=== PATIENT | female | born 1975 | race Caucasian/White ===

== ENCOUNTER → 2020-12-31 | Outpatient (CLI) | payer MEDICARE, MEDICAID ==
[~2020-12-31] MED LIST: ACHD5005 PO; ATOR20TA66; CETI10TA17; CHOLESTEROL PILL PO; CLON2TAB3 PO; CYCL10TA9 PO; DOXY100C2 PO; DULO60CA6 PO; FLT11013; LAMO25TA8; MIRA50TA; MORP15TA69 PO; NAPR-243 PO; NAPR550T PO; NF-ESOM40C; NORG1TAB19; PALI6TAB2 PO; RT-ALBUINH
--- NOTE | 2020-12-31 15:37 | Diagnostic Imaging Report ---
Clinical Indications: Patient is having cervical spine and lumbar spine pain from carrying a heavy load. Exam: MRI of the cervical spine performed without IV contrast. Sequences include sagittal T1, sagittal T2, sagittal stir, and axial T2. Comparison: None. Findings: There is no acute cervical spine fracture. There is no significant Modic signal changes. Limited visualization of the posterior fossa is unremarkable. There is slight deformity of the cord seen at the C5-C6 level due to disk herniation. There is no definite cord signal abnormality. There is partial consolidation of the sphenoid sinus. There are cervical spine vertebral body spurs. There is facet arthropathy/hypertrophy seen at the left side more than the right. C1-C2: There is no significant central canal narrowing. C2-C3: There is no significant central spinal canal or neural foramen narrowing. C3-C4: There is a small posterior disk bulge and small bilateral uncinate spurs. There is mild to moderate right facet arthropathy and moderate left facet arthropathy/hypertrophy. There is moderate to severe left neural foramen narrowing and at least moderate right neural foramen narrowing. There is mild central canal stenosis. C4-C5: There is a small broad posterior disk bulge with bilateral uncinate spurs. There is severe left facet arthropathy/hypertrophy and mild right facet arthropathy. There is moderate to severe left neural foramen narrowing and severe right neural foramen narrowing. There is moderate to severe central canal stenosis. C5-C6: There is roughly 1 to 2 mm of grade 1 retrolisthesis of C5 on C6. There is no pars defect seen. There is a diffuse disk bulge with superimposed small broad posterior disk herniation. There is ligamentum flavum buckling and mild bilateral facet arthropathy. There is severe bilateral neural foramen narrowing and severe central canal stenosis. C6-C7: There is a small posterior disk bulge and ligamentum flavum buckling. There is moderate central canal stenosis. There is mild left neural foramen narrowing and no significant right neural foramen narrowing. C7-T1: Unremarkable. IMPRESSION: 1: There is multilevel cervical spine degenerative disk disease which is worse in the mid to lower cervical spine regions. 2: There is grade 1 retrolisthesis of C5 on C6 with diffuse disk bulge and posterior disk herniation. There is severe bilateral neural foramen narrowing and severe central canal stenosis. 3: There is a C4-C5 posterior disk bulge and uncinate spurs. There is moderate to severe central canal stenosis, moderate to severe left neural foramen narrowing is severe right neural foramen narrowing. Dictated by: Dictated on workstation # [id number]
--- NOTE | 2020-12-31 16:21 | Diagnostic Imaging Report ---
Clinical Indication: Patient states she has cervical spine and lumbar spine pain from carrying a heavy load. Exam: MRI of the lumbar spine performed without IV contrast. Sagittal T2, sagittal T1, sagittal T2 fat-sat, and axial T2. Comparison: MRI of the lumbar spine without contrast dated 12/29/2015. Findings: Stable 9 mm x 19 mm perineural cyst in the left T11-T12 neural foramen region. There is no acute lumbar spine fracture. There is Modic type I degenerative signal changes involving the L4-L5 and L5-S1 levels. The visualized portions of the distal thoracic spinal cord, conus medullaris, and cauda equina nerve roots are unremarkable. The conus medullaris tip is seen at the L1-L2 intervertebral level. There is no significant paraspinal soft tissue abnormality. There are degenerative spurs involving the lumbar spine and lower lumbar spine facet arthropathy. T12-L1: Unremarkable. L1-L2: Unremarkable. L2-L3: Unremarkable. L3-L4: There is a mild diffuse disk bulge with slight increased size of the posterior disk herniation component. There is a focal annular tear seen posteriorly. There is mild central canal narrowing which has minimally progressed. There is no significant neural foramen narrowing. L4-L5: There is a diffuse disk bulge with increased size of a small posterior disk herniation centrally. There is moderate bilateral facet arthropathy. There is moderate central canal stenosis which has progressed. There is mild bilateral neural foraminal narrowing which has slightly progressed. L5-S1: There is grade 1 retrolisthesis of L5 on S1. There is progression of a diffuse disk bulge with now moderate loss of disk space height and increased disk spurs into the foraminal regions bilaterally. There is severe right neural foramen narrowing and moderate to severe left neural foramen narrowing which has progressed. There is moderate bilateral facet arthropathy. There is no significant central canal stenosis. IMPRESSION: 1: There is no acute lumbar spine fracture. 2: There is interval progression of multilevel lumbar spine degenerative disk disease, as described above. 3: There is stable grade 1 retrolisthesis of L5 on S1, but there is progression of severe disk disease changes at this level. 4: Stable perineural cyst in the left T11-T12 neural foramen region. Dictated by: Dictated on workstation # [id number]
== END ==
LOC: RAD 14:30
PROVIDERS: ATTEND Nurse Practitioner
DX: G96.191 Perineural cyst (principal); M47.812 Spondylosis without myelopathy or radiculopathy, cervical region; M47.816 Spondylosis without myelopathy or radiculopathy, lumbar region; M50.220 Other cervical disc displacement, mid-cervical region, unspecified level; M50.221 Other cervical disc displacement at C4-C5 level; M50.222 Other cervical disc displacement at C5-C6 level; M50.223 Other cervical disc displacement at C6-C7 level; M51.26 Other intervertebral disc displacement, lumbar region; M51.27 Other intervertebral disc displacement, lumbosacral region; M48.02 Spinal stenosis, cervical region; M48.061 Spinal stenosis, lumbar region without neurogenic claudication; M48.07 Spinal stenosis, lumbosacral region; M43.12 Spondylolisthesis, cervical region; M43.17 Spondylolisthesis, lumbosacral region; M24.28 Disorder of ligament, vertebrae
CPT/HCPCS: 72141; 72148